=== PATIENT | male | born 1995 | race Caucasian/White ===

== ENCOUNTER 2016-08-14 03:21 | Inpatient (IN) | payer OTHER ==
[~2016-08-14] VITALS: Ht 185.4 cm; Wt 74.3 kg
[2016-08-14 04:45] LABS: MEAN CORPUSCULAR HEMOGLOBIN 29.1 pg (27.0-33.0); MEAN CORPUSCULAR VOLUME 85.5 fl (80.0-96.0); RED CELL DISTRIBUTION WIDTH 13.1 % (11.5-14.5); WHITE BLOOD COUNT 10.2 K/mm3 (4.0-10.0)
[2016-08-14 05:04] LABS: AMPHETAMINES LEVEL URINE NEGATIVE (NEGATIVE); BENZODIAZEPINES URINE NEGATIVE (NEGATIVE); COCAINE METABOLITE URINE NEGATIVE (NEGATIVE); CONTROL LINE INT CTR LINE PRESENT; METHADONE URINE NEGATIVE (NEGATIVE); OPIATES URINE NEGATIVE (NEGATIVE); TRICYCLIC ANTIDEPRESS URINE NEGATIVE (NEGATIVE)
[2016-08-14 05:15] LABS: ALBUMIN/GLOBULIN RATIO 1.18 (1.00-1.93); ALKALINE PHOSPHATASE 39 U/L (45-117); ALT/SGPT 16 U/L (12-78); ANION GAP 9 MEQ/L (8-16); AST/SGOT 10 U/L (15-37); BILIRUBIN,DIRECT 0.1 MG/DL (0.0-0.2); BILIRUBIN,TOTAL 0.4 MG/DL (0.2-1.0); BLOOD UREA NITROGEN 12 MG/DL (7-18); CALCIUM LEVEL 8.9 MG/DL (8.5-10.1); CARBON DIOXIDE LEVEL 29 MEQ/L (21-32); CHLORIDE LEVEL 107 MEQ/L (98-107); CREATININE FOR GFR 0.95 MG/DL (0.70-1.30); GLOMERULAR FILTRATION RATE > 60.0 (>60); GLUCOSE, FASTING 103 MG/DL (70-105); POTASSIUM SERUM 4.3 MEQ/L (3.5-5.1); SODIUM LEVEL 145 MEQ/L (136-145); TOTAL PROTEIN 7.4 GM/DL (6.4-8.2)
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
--- NOTE | 2016-08-14 15:20 | EDDOCDS ---
Physician Documentation [facility] Name: Roberto Berger Age: 20 yrs Sex: Male : 1995 Arrival Date: 08/14/2016 Time: 03:21 Bed OBSERVATION Private MD: Disposition: 08/14/16 14:19 Hospitalization ordered by Jude Carpio for Inpatient Admission. Preliminary diagnosis is Suicidal ideations. - Bed requested for Admit. - Status is Inpatient Admission. ms2 - Condition is Stable. - Problem is new. - Symptoms have improved. Historical: - Allergies: No known drug Allergies; - Home Meds: 1. none - PMHx: none; - PSHx: Arthroscopy, Knee- Right; - Social history: Smoking status: Patient uses tobacco products, heavy tobacco smoker. No barriers to communication noted, The patient speaks fluent Maori, Speaks appropriately for age. - Family history: Not pertinent. - : The pt / caregiver states he / she is not on anticoagulants. Home medication list is obtained from the patient. - Exposure Risk Screening:: None identified. Vital Signs: 08/14 03:30 BP 146 / 86; Pulse 94; Resp 18; Temp 97.7; Pulse Ox 99% on R/A; Pain 1/10; slm 06:46 BP 113 / 58; Pulse 56; Resp 16; Pulse Ox 99% on R/A; slm MDM: 04:18 Consult PFS/PSA/Automatic Clipper ordered. mm11 04:18 Consult PFS/PSA/Automatic Clipper: Patient's case requires discussion with on-call mm11 Psychiatrist ordered. 04:18 PSA/PFS to call Nursing Emission Specialist, to enter patient data on [place] Safe Act if patient mm11 involuntarily admitted or transferred for SI or HI ordered. 04:18 Confirm accurate psychiatric medication list and times of last dosage ordered. mm11 04:18 Detain Pt Until Medically/PFS Cleared ordered. mm11 04:19 Acetaminophen Level Ordered. EDMS 04:19 Basic Metabolic Profile Ordered. EDMS 04:19 Complete Blood Count Ordered. EDMS 04:19 Drug Eval Toxicology ED Only Ordered. EDMS 04:19 Ethyl Alcohol (ethanol) Ordered. EDMS 04:19 Liver Profile Ordered. EDMS 04:19 Salicylate Level Ordered. EDMS 04:19 Thyroid Stimulating Hormone Ordered. EDMS 04:57 [facility] Payment Agreement was scanned into [employer] AI and attached to record. hs2 06:19 REGULAR DIET PLASTIC REILLY+DIET ordered. EDMS 06:29 Acetaminophen Level Reviewed. mm11 06:29 Complete Blood Count Reviewed. mm11 06:29 Liver Profile Reviewed. mm11 06:29 Salicylate Level Reviewed. mm11 06:29 Basic Metabolic Profile Reviewed. mm11 06:29 Drug Eval Toxicology ED Only Reviewed. mm11 06:29 Ethyl Alcohol (ethanol) Reviewed. mm11 06:29 Thyroid Stimulating Hormone Reviewed. mm11 06:35 Financial registration complete. hs2 06:39 Consult PFS/PSA/Automatic Clipper complete. cl 06:39 Consult PFS/PSA/Automatic Clipper: Patient's case requires discussion with on-call cl Psychiatrist complete. 06:39 PSA/PFS to call Nursing Emission Specialist, to enter patient data [place] Safe [place] if patient cl involuntarily admitted or transferred for SI or HI complete. 07:55 PCR was scanned into [employer] AI and attached to record. gb 11:09 REGULAR DIET PLASTIC REILLY+DIET ordered. EDMS 14:13 Admit to IMHU: ordered. EDMS 14:14 REGULAR DIET ordered. EDMS 14:30 [facility] Legal paperwork was scanned into [employer] AI and attached to record. ms Signatures: Dispatcher [employer] EDMS Radha James MD MD sd1 Giancarlo Rivas,RN RN ms2 Oscar, Neel, PSA PSA cl Stone, Anita, PSA PSA ms AbdirashidTrisha, Reg Reg gb Gulshan Cervantes, DO DO mm11 Margaret Santiago RN RN nn1 Katerina Salinas, Reg Reg hs2 The chart was reviewed and I authenticate all verbal orders and agree with the evaluation and treatment provided.Attachments: 04:57 [facility] Payment Agreement hs2 MTDD
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
[2016-08-14] MEDS ORDERED: MAALOX 30 ML SUSP *UDC PO PRN (17:15)
[2016-08-14] MEDS ORDERED: ACETAMINOPHEN TAB 650MG DOSE (2X325MG) PO PRN (17:15)
[2016-08-14] MEDS ORDERED: MOM 30ML SUSPENSION UDC PO PRN (17:15)
[2016-08-14] MEDS: traZODone 50 MG TAB PO PRN (23:08)
[2016-08-15 06:33] VITALS: BP 128/60
[2016-08-15] MEDS: NICOTINE 21MG/24HR 1 EA TRANSDERMAL TD SCH (09:04)
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
[2016-08-15] MEDS ORDERED: IBUPROFEN 400 MG TAB PO PRN (10:45)
--- NOTE | 2016-08-15 17:34 | ECGEPIP ---
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
[2016-08-15 18:00] VITALS: BP 120/60
--- NOTE | 2016-08-15 19:37 | IPNPDOC ---
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 Pt. states about 15 months ago he got back from [place] and was excited to be reunited with his girlfriend. Pt. states they began having problems in the relationship and eventually she did not even want to try and work things out. Pt. then was told she was having an affair and wanted to be with the other jeanna. Pt. was told yesterday that she may be and if she is would like to be with him again. Pt. has vented to a close friend, "That's how I ended up here". Pt. also verbalizes he has been talking to another "friend" (from [place]) that is able to calm him down and give him hope. Pt. is upset that he will not be able to communicate with her as per the unit rules. VITAL SIGNS: See below. NEW TEST RESULTS: From admission pt. has an increased WBC count, denies signs of infection, fever, cough. Pt. has decreased AST, Alk Phos levels, UDS NEG. CURRENT MEDICATIONS: See below. Trazodone 50 mg po q hs prn sleep. MENTAL STATUS EXAMINATION: Patient is a 20 year old male, who is pleasant, cooperative, well kempt, of average build. Pt. has good eye contact and responds appropriately to questions asked. Pt. does use humor at times appropriately. Speech: Is of normal rate, volume. Pt. is articulate, coherent, and spontaneous. Thought processes: Clear and Goal directed. Rate of thoughts: Average. Thought content: Rational, Logical. Abstract reasoning: Adequate. Computation: Adequate. Associations: Intact. Abnormal or psychotic thoughts: Pt. denies hallucinations, delusions, preoccupation with violence, Homicidal or suicidal ideation and obsessions. Judgment: Good - Improved. Insight: Good -Improved. Oriented to: Time, place, person and surroundings. Recent and Remote Memory: Pt. denies any issues. Attention Span and Concentration: Good. Language: Normal. Fund of knowledge : Good. Mood: "Completely fine" Affect: Appropriate. DIAGNOSES: Adjustment reaction with mixed anxiety and depressed mood. ASSESSMENT:Pt. has acclimated to unit. Patient has been participating in unit programming and activities. Pt. denies HI/SI, A/V hallucinations, paranoia, delusions or obsessions. Pt. to continue Trazodone 50 mg po q hs prn for sleep, as it improved his quantity and quality of sleep. Pt. reports he slept about 7 hours soundly. Patient to continue to engage with peers, attend unit programming and groups, have some kind of activity and exercise. Pt. is happy to have participatedin groups and activities. Pt. shows this provider some of what he has learned and worked on. Discussed discharge plan with patient. MANAGEMENT PLAN: Pt. to continue Trazodone 50 mg po qhs prn to continue quality sleep. Maintain safety precautions. Patient to continue to attend groups and unit programming to develop effective coping strategies. Patient to engage in discharge planning process to ensure safe and effective discharge plan. Pt. to schedule and attend outpatient therapy upon discharge. Pt. to follow up with PCP upon discharge. Vital Signs/I&O Vital Signs Date Time Temp Pulse Resp B/P Pulse Ox O2 Delivery O2 Flow Rate FiO2 08/15/16 18:00 96.8 88 18 120/60 Current Medications Current Medications Acetaminophen (Tylenol) 650 mg Q6HP PRN PO HEADACHE or DISCOMFORT; Start at 17:15; Stop 09/13/16 at 17:14 Al Hydrox/Mg Hydrox/Simethicone (Mylanta) 30 ml Q4HP PRN PO HEARTBURN/ INDIGESTION; Start 08/14/16 at 17:15; Stop 09/13/16 at 17:14 Home Med (Med Rec Complete!) ASDIRECTED XX ; Start 08/14/16 at 14:45; Stop 05/21 at 14:45; Status DC Ibuprofen (Advil) 400 mg Q6HP PRN PO PAIN; Start 08/15/16 at 10:45; Stop at 10:44 Magnesium Hydroxide (Milk Of Magnesia) 30 ml DAILYPRN PRN PO CONSTIPATION; Start 08/14/16 at 17:15; Stop 09/13/16 at 17:14 Nicotine (Nicoderm Cq 21mg) 1 patch DAILY TD Last administered on 08/15/16 09: 04; Start 08/15/16 at 09:00; Stop 09/14/16 at 08:59 Trazodone HCl (Desyrel) 50 mg QHSP PRN PO INSOMNIA Last administered on t 23:08; Start 08/14/16 at 17:15; Stop 09/13/16 at 17:14 Allergies Coded Allergies: No Known Allergies (Unverified , 08/14/16) LINDA LOWERY NP Aug 15, 2016 19:37
[2016-08-15] MEDS: traZODone 50 MG TAB PO PRN (23:04)
[2016-08-16 06:07] VITALS: BP 113/65
[2016-08-16] MEDS: NICOTINE 21MG/24HR 1 EA TRANSDERMAL TD SCH (08:54)
[2016-08-16] MEDS ORDERED: NICO21PAT TD (09:59)
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
[2016-08-16] MEDS ORDERED: TRAZO50TA PO (12:19)
--- NOTE | 2016-08-16 16:20 | EDDOCDS ---
Physician Documentation [facility] Name: Roberto Berger Age: 20 yrs Sex: Male : 1995 Arrival Date: 08/14/2016 Time: 03:21 Bed OBSERVATION Private MD: Disposition: 08/14/16 14:19 Hospitalization ordered by Jude Carpio for Inpatient Admission. Preliminary diagnosis is Suicidal ideations. - Bed requested for Admit. - Status is Inpatient Admission. ms2 - Condition is Stable. - Problem is new. - Symptoms have improved. Historical: - Allergies: No known drug Allergies; - Home Meds: 1. none - PMHx: none; - PSHx: Arthroscopy, Knee- Right; - Social history: Smoking status: Patient uses tobacco products, heavy tobacco smoker. No barriers to communication noted, The patient speaks fluent Italian, Speaks appropriately for age. - Family history: Not pertinent. - : The pt / caregiver states he / she is not on anticoagulants. Home medication list is obtained from the patient. - Exposure Risk Screening:: None identified. Vital Signs: 08/14 03:30 BP 146 / 86; Pulse 94; Resp 18; Temp 97.7; Pulse Ox 99% on R/A; Pain 1/10; slm 06:46 BP 113 / 58; Pulse 56; Resp 16; Pulse Ox 99% on R/A; slm MDM: 04:18 Consult PFS/PSA/Electric Truck Operator ordered. mm11 04:18 Consult PFS/PSA/Electric Truck Operator: Patient's case requires discussion with on-call mm11 Psychiatrist ordered. 04:18 PSA/PFS to call Nursing Roof Painter, to enter patient data on [place] if patient mm11 involuntarily admitted or transferred for SI or HI ordered. 04:18 Confirm accurate psychiatric medication list and times of last dosage ordered. mm11 04:18 Detain Pt Until Medically/PFS Cleared ordered. mm11 04:19 Acetaminophen Level Ordered. EDMS 04:19 Basic Metabolic Profile Ordered. EDMS 04:19 Complete Blood Count Ordered. EDMS 04:19 Drug Eval Toxicology ED Only Ordered. EDMS 04:19 Ethyl Alcohol (ethanol) Ordered. EDMS 04:19 Liver Profile Ordered. EDMS 04:19 Salicylate Level Ordered. EDMS 04:19 Thyroid Stimulating Hormone Ordered. EDMS 04:57 [facility] Payment Agreement was scanned into [employer] and attached to record. hs2 06:19 REGULAR DIET PLASTIC REILLY+DIET ordered. EDMS 06:29 Acetaminophen Level Reviewed. mm11 06:29 Complete Blood Count Reviewed. mm11 06:29 Liver Profile Reviewed. mm11 06:29 Salicylate Level Reviewed. mm11 06:29 Basic Metabolic Profile Reviewed. mm11 06:29 Drug Eval Toxicology ED Only Reviewed. mm11 06:29 Ethyl Alcohol (ethanol) Reviewed. mm11 06:29 Thyroid Stimulating Hormone Reviewed. mm11 06:35 Financial registration complete. hs2 06:39 Consult PFS/PSA/Electric Truck Operator complete. cl 06:39 Consult PFS/PSA/Electric Truck Operator: Patient's case requires discussion with on-call cl Psychiatrist complete. 06:39 PSA/PFS to call Nursing Roof Painter, to [place] data [place] if patient cl involuntarily admitted or transferred for SI or HI complete. 07:55 PCR was scanned into [employer] and attached to record. gb 11:09 REGULAR DIET PLASTIC REILLY+DIET ordered. EDMS 14:13 Admit to IMHU: ordered. EDMS 14:14 REGULAR DIET ordered. EDMS 14:30 [facility] Legal paperwork was scanned into [employer] and attached to record. ms 08/15 10:08 T-Sheet-- Draft Copy was scanned into [employer] and attached to record. gb Signatures: Dispatcher [employer] Radha Lucio MD MD sd1 Giancarlo Rivas,RN RN ms2 Oscar, Neel, PSA PSA cl Arsenio, Anita, PSA PSA ms Trisha Mendenhall, Reg Reg gb Gulshan Cervantes, DO mm11 Margaret SantiagoRN RN nn1 Katerina Salinas, Reg Reg hs2 The chart was reviewed and I authenticate all verbal orders and agree with the evaluation and treatment provided.Attachments: 08/14 04:57 [facility] Payment Agreement hs2 08/15 10:08 T-Sheet-- Draft Copy gb Chart Complete MTDD
--- NOTE | 2016-08-16 16:20 | EDDOCDS ---
Physician Documentation [facility] [place] Name: Roberto Berger Age: 20 yrs Sex: Male : 1995 Arrival Date: 08/14/2016 Time: 03:21 Bed OBSERVATION Private MD: Disposition: 08/14/16 14:19 Hospitalization ordered by Jude Carpio for Inpatient Admission. Preliminary diagnosis is Suicidal ideations. - Bed requested for Admit. - Status is Inpatient Admission. ms2 - Condition is Stable. - Problem is new. - Symptoms have improved. Historical: - Allergies: No known drug Allergies; - Home Meds: 1. none - PMHx: none; - PSHx: Arthroscopy, Knee- Right; - Social history: Smoking status: Patient uses tobacco products, heavy tobacco smoker. No barriers to communication noted, The patient speaks fluent Armenian, Speaks appropriately for age. - Family history: Not pertinent. - : The pt / caregiver states he / she is not on anticoagulants. Home medication list is obtained from the patient. - Exposure Risk Screening:: None identified. Vital Signs: 08/14 03:30 BP 146 / 86; Pulse 94; Resp 18; Temp 97.7; Pulse Ox 99% on R/A; Pain 1/10; slm 06:46 BP 113 / 58; Pulse 56; Resp 16; Pulse Ox 99% on R/A; slm MDM: 04:18 Consult PFS/PSA/Manager Communication ordered. mm11 04:18 Consult PFS/PSA/Manager Communication: Patient's case requires discussion with on-call mm11 Psychiatrist ordered. 04:18 PSA/PFS to call Nursing Manager Front, to [place] data [place] if patient mm11 involuntarily admitted or transferred for SI or HI ordered. 04:18 Confirm accurate psychiatric medication list and times of last dosage ordered. mm11 04:18 Detain Pt Until Medically/PFS Cleared ordered. mm11 04:19 Acetaminophen Level Ordered. EDMS 04:19 Basic Metabolic Profile Ordered. EDMS 04:19 Complete Blood Count Ordered. EDMS 04:19 Drug Eval Toxicology ED Only Ordered. EDMS 04:19 Ethyl Alcohol (ethanol) Ordered. EDMS 04:19 Liver Profile Ordered. EDMS 04:19 Salicylate Level Ordered. EDMS 04:19 Thyroid Stimulating Hormone Ordered. EDMS 04:57 [facility] Payment Agreement was scanned into [employer] and attached to record. hs2 06:19 REGULAR DIET PLASTIC REILLY+DIET ordered. EDMS 06:29 Acetaminophen Level Reviewed. mm11 06:29 Complete Blood Count Reviewed. mm11 06:29 Liver Profile Reviewed. mm11 06:29 Salicylate Level Reviewed. mm11 06:29 Basic Metabolic Profile Reviewed. mm11 06:29 Drug Eval Toxicology ED Only Reviewed. mm11 06:29 Ethyl Alcohol (ethanol) Reviewed. mm11 06:29 Thyroid Stimulating Hormone Reviewed. mm11 06:35 Financial registration complete. hs2 06:39 Consult PFS/PSA/Manager Communication complete. cl 06:39 Consult PFS/PSA/Manager Communication: Patient's case requires discussion with on-call cl Psychiatrist complete. 06:39 PSA/PFS to call Nursing Manager Front, to [place] if patient cl involuntarily admitted or transferred for SI or HI complete. 07:55 PCR was scanned into [employer] and attached to record. gb 11:09 REGULAR DIET PLASTIC REILLY+DIET ordered. EDMS 14:13 Admit to IMHU: ordered. EDMS 14:14 REGULAR DIET ordered. EDMS 14:30 [facility] Legal paperwork was scanned into [employer] and attached to record. ms 08/15 10:08 T-Sheet-- Draft Copy was scanned into [employer] and attached to record. gb Signatures: Dispatcher [employer] Radha Lucio MD MD sd1 Giancarlo Rivas,RN RN ms2 Oscar, Neel, PSA PSA cl Arsenio, Anita, PSA PSA ms Trisha Mendenhall, Reg Reg gb Gulshan Cervantes, DO mm11 Margaret SantiagoRN RN nn1 Katerina Salinas, Reg Reg hs2 The chart was reviewed and I authenticate all verbal orders and agree with the evaluation and treatment provided.Attachments: 08/14 04:57 [facility] Payment Agreement hs2 08/15 10:08 T-Sheet-- Draft Copy gb Chart Complete MTDD
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
== END 2016-08-16 13:20 | disposition home or self-care (01) | DRG 882 ==
LOC: M ED 03:21 → M PSY 14:08
PROVIDERS: ADMIT Psychiatry & Neurology Psychiatry; ATTEND Psychiatry & Neurology Psychiatry
DX: F43.23 Adjustment disorder with mixed anxiety and depressed mood (principal); Z91.5 Personal history of self-harm; Z63.0 Problems in relationship with spouse or partner; F17.210 Nicotine dependence, cigarettes, uncomplicated; J30.9 Allergic rhinitis, unspecified; Z91.018 Allergy to other foods

== ENCOUNTER 2017-03-25 19:39 | Emergency (ER) | payer OTHER ==
[~2017-03-25] VITALS: Ht 185.4 cm; Wt 82.7 kg
[~2017-03-25 19:39] MED LIST: NICO21PAT TD; TRAZO50TA PO
[2017-03-25 19:47] VITALS: BP 145/80
[2017-03-25] MEDS ORDERED: MELA3TAB PO (19:57)
[2017-03-25] MEDS ORDERED: PERC5TAB12 PO (19:57)
[2017-03-25] MEDS ORDERED: ATIV1TAB10 PO (21:10)
[2017-06-05] MEDS ORDERED: ZOFR20TA PO (02:14)
== END 2017-03-25 21:25 | disposition home or self-care (01) ==
LOC: M ED 19:39
DX: F41.9 Anxiety disorder, unspecified (principal)